=== PATIENT | male | born 1940 | race Two or more races ===

== ENCOUNTER 2024-01-07 05:27 | Day surgery (SDC) | payer OTHER ==
[~2024-01-07] VITALS: Ht 167.6 cm; Wt 74.8 kg
[~2024-01-07 05:27] MED LIST: AMLODIPINE BESYL5 MG PO; ARICEPT5 MG PO; CARBIDOPA-LEVO1 EA10 PO; ESCITALOPRAM OXA5 MG PO; FINASTERIDE5 MG PO; LIPITOR20 MG PO; MEMANTINE HCL10 MG PO; TAMS0.4C PO; ZESTRIL20 MG PO
[2024-01-07] MEDS ORDERED: CEFAZOLIN SODIUM 1,000 MG VIAL ONE (07:21)
[2024-01-07] MEDS ORDERED: BUPIVACAINE HCL/MPF 0.5% 30ML VIAL ONE (07:21)
[2024-01-07] MEDS ORDERED: ISOPROPYL ALCOHOL 30 ML OUNCE TOP ONE (09:30)
== END 2024-01-07 12:30 | disposition home or self-care (01) ==
LOC: CIR.AMB 05:27
PROVIDERS: ATTEND Orthopaedic Surgery Hand Surgery
DX: S52.532A Colles' fracture of left radius, initial encounter for closed fracture (principal); F41.9 Anxiety disorder, unspecified; F41.0 Panic disorder [episodic paroxysmal anxiety]
CPT/HCPCS: 25609; 25280; L8699